=== PATIENT | male | born 2000 | race Caucasian/White ===

== ENCOUNTER 2018-07-02 10:58 | Emergency (ER) | payer OTHER ==
[2018-07-02] MEDS: NEOMYC/POLYMYX/BACIT 30 GM OINT TOP (11:28)
== END 2018-07-02 12:37 | disposition home or self-care (01) ==
LOC: FTE 10:58
DX: S63.502A Unspecified sprain of left wrist, initial encounter (principal); S80.811A Abrasion, right lower leg, initial encounter; J45.909 Unspecified asthma, uncomplicated; V18.0XXA Pedal cycle driver injured in noncollision transport accident in nontraffic accident, initial encounter
CPT/HCPCS: 29125; 73110-RT; 99283-25

== ENCOUNTER 2019-05-24 22:06 | Emergency (ER) | payer OTHER ==
[2019-05-25] MEDS: ONDANSETRON (ODT) 4 MG TAB ODT (01:19)
[2019-05-25] MEDS: LIDOCAINE/MYLANTA 40 ML BTL PO (01:19)
[2019-05-25] MEDS: FAMOTIDINE 20 MG TAB PO (01:19)
== END 2019-05-25 01:46 | disposition home or self-care (01) ==
LOC: FTE 22:06
DX: T62.91XA Toxic effect of unspecified noxious substance eaten as food, accidental (unintentional), initial encounter (principal); J45.909 Unspecified asthma, uncomplicated
CPT/HCPCS: 99283; Z7610